=== PATIENT | female | born 1980 | race Caucasian/White ===

== ENCOUNTER 2021-05-07 23:45 | Emergency (ER) | payer MEDICAID ==
[~2021-05-07] VITALS: Ht 162.6 cm; Wt 63.5 kg
[2021-05-07 23:49] VITALS: BP 110/72
--- NOTE | 2021-05-08 01:43 | NUR ---
PT AMBULATED TO CHAIR C.
[2021-05-08] MEDS ORDERED: LORazepam 1 MG TAB PO ONE (01:50)
[2021-05-08 02:08] VITALS: BP 110/72
--- NOTE | 2021-05-08 02:09 | NUR ---
Patient discharged with v/s stable. Written and verbal after care instructions given and explained. Patient verbalized understanding. Ambulatory with steady gait. All questions addressed prior to discharge. Advised to follow up with PMD.
== END 2021-05-08 02:09 | disposition home or self-care (01) ==
LOC: MED 23:45
DX: F43.10 Post-traumatic stress disorder, unspecified (principal); F41.9 Anxiety disorder, unspecified; F10.129 Alcohol abuse with intoxication, unspecified; F15.90 Other stimulant use, unspecified, uncomplicated
CPT/HCPCS: 99283